=== PATIENT | female | born 1970 | race Caucasian/White ===

== ENCOUNTER 2024-10-23 15:23 | Emergency (ER) | payer OTHER ==
[~2024-10-23] VITALS: Ht 160 cm; Wt 132.1 kg
[2024-10-23 17:56] VITALS: BP 187/84; TEMP 96.9; O2SAT 99
[2024-10-23] MEDS ORDERED: NAPR-837 PO (18:04)
[2024-10-23] MEDS: NAPROXEN 250 MG TAB PO ONE (18:17)
== END 2024-10-23 18:19 | disposition home or self-care (01) ==
LOC: M ED 15:23
DX: S30.1XXA Contusion of abdominal wall, initial encounter (principal); S40.021A Contusion of right upper arm, initial encounter; S50.11XA Contusion of right forearm, initial encounter; Y92.810 Car as the place of occurrence of the external cause; Y93.9 Activity, unspecified; Y99.9 Unspecified external cause status; Y04.8XXA Assault by other bodily force, initial encounter; I10 Essential (primary) hypertension; E11.9 Type 2 diabetes mellitus without complications; Z88.8 Allergy status to other drugs, medicaments and biological substances; Z79.899 Other long term (current) drug therapy